=== PATIENT | female | born 1995 | race Caucasian/White ===

== ENCOUNTER 2017-03-30 19:54 | Emergency (ER) | payer MEDICAID ==
[~2017-03-30] VITALS: Ht 165.1 cm; Wt 88.5 kg
[2017-03-30 20:02] VITALS: BP 113/46
--- NOTE | 2017-03-30 20:34 | NUR ---
PATIENT LEFT WITHOUT BEING SEEN BY DR. BONILLA. NO FURTHER CARE PROVIDED FOR PATIENT.
== END 2017-03-30 20:34 | disposition left against medical advice (07) ==
LOC: MED 19:54
DX: O26.892 Other specified pregnancy related conditions, second trimester (principal); Z53.21 Procedure and treatment not carried out due to patient leaving prior to being seen by health care provider; R10.9 Unspecified abdominal pain; Z3A.16 16 weeks gestation of pregnancy

== ENCOUNTER 2022-01-26 10:23 | Day surgery (SDC) | payer OTHER, SELFPAY ==
[~2022-01-26] VITALS: Ht 162.6 cm; Wt 79.4 kg
[2022-01-26] MEDS ORDERED: MIDAZOLAM 5 MG/5 ML VIAL ONE (12:05)
[2022-01-26] MEDS ORDERED: SIMETHICONE 40 MG/0.6 ML ONE (12:06)
[2022-01-26] MEDS ORDERED: MIDAZOLAM 2 MG/2 ML VIAL IVP ONE (16:10)
== END 2022-01-26 13:40 | disposition home or self-care (01) ==
LOC: MDS 10:23 → MMU 10:29 → MDS 13:40
PROVIDERS: ATTEND Internal Medicine Gastroenterology
DX: R13.10 Dysphagia, unspecified (principal); K21.9 Gastro-esophageal reflux disease without esophagitis; K44.9 Diaphragmatic hernia without obstruction or gangrene; Z90.49 Acquired absence of other specified parts of digestive tract; Z20.822 Contact with and (suspected) exposure to COVID-19
CPT/HCPCS: 43239; 81025; 87426; J2250